=== PATIENT | male | born 1950 | race Caucasian/White ===

== ENCOUNTER 2018-04-25 11:08 | Observation (INO) | payer MEDICARE ==
[2018-04-25] MEDS ORDERED: Nitroglycerin 2% Ointment 1 INCH/1 GM Packet ONE (11:44)
[2018-04-25 11:47] LABS: #Basophils 0.1 thou/uL (0.0-0.2); #Eosinphils 0.1 thou/uL (0.0-0.7); #Lymphocytes 1.4 thou/uL (1.20-3.40); #Monocytes 0.6 thou/uL (0.11-0.59); #Neutrophils 4.1 thou/uL (1.40-6.50); %Basophils 1.5 % (0.0-1.0); %Eosinophils 2.3 % (0.0-10.0); %Lymphocytes 21.9 % (21.0-51.0); %Monocytes 9.4 % (0.0-10.0); %Neutrophils 64.9 % (42.0-75.0); Hemoglobin 15.3 g/dL (14.0-18.0); Mean Corpuscular HGB CONC 33.1 g/dL (32.0-36.0); Mean Corpuscular Hemoglobin 30.7 pg (27.0-31.0); Mean Corpuscular Volume 92.7 fL (78.0-98.0); Mean Platelet Volume 10.4 fL (7.4-10.4); Platelet Count 204 thou/uL (130-400); RBC Distribution Width 11.7 % (11.5-14.5); Red Blood Cell (RBC) Count 4.98 mill/uL (4.70-6.10); White Blood Cell (WBC) Count 6.3 thou/uL (4.8-10.8)
[2018-04-25 12:02] LABS: ALT (SGPT) 15 U/L (8-55); AST (SGOT) 17 U/L (5-34); Albumin 4.4 g/dL (3.4-4.8); Alkaline Phosphatase 71 U/L (40-150); Anion Gap 15 mmol/L (10-20); BUN (Urea Nitrogen) 20 mg/dL (8.4-25.7); Bilirubin, Total 0.7 mg/dL (0.2-1.2); CK (CPK) 78 U/L (30-200); Calc. Creatinine Clearance 0 mL/min (70-130); Calcium 9.6 mg/dL (7.8-10.44); Carbon Dioxide 25 mmol/L (23-31); Chloride 104 mmol/L (98-107); Estimated GFR-MDRD 44; Globulin 3.1 g/dL (2.4-3.5); Glucose 90 mg/dL (80-115); Lipase 12 U/L (8-78); Potassium 4.9 mmol/L (3.5-5.1); Protein, Total 7.5 g/dL (5.8-8.1); Sodium 139 mmol/L (136-145)
--- NOTE | 2018-04-25 12:57 | RAD ---
CHEST 1 VIEW: HISTORY: Chest pain. FINDINGS: No comparison. Cardiac silhouette is magnified by projection. Pulmonary vasculature unremarkable. Mediastinum midl ine. No lobar consolidation or evidence of pneumothorax. night monitor leads overlie the chest. IMPRESSION: No active cardiopulmonary abnormalities are demonstrated. POS: TINOH
[2018-04-25] MEDS ORDERED: Ondansetron ODT 4 MG TAB SL PRN (15:06)
[2018-04-25] MEDS ORDERED: Acetaminophen 325 MG TAB PO PRN ×2 (15:06→21:46)
[2018-04-25] MEDS ORDERED: Ondansetron PF 4 MG/2 ML Vial IVP PRN (15:06)
[2018-04-25] MEDS ORDERED: Aspirin 325 MG TAB PO SCH (15:15)
[2018-04-25 15:18] VITALS: BMI 28.8
[2018-04-25 16:31] LABS: Troponin I Less than 0.010 ng/mL (< 0.028)
[2018-04-25 19:11] LABS: Troponin I Less than 0.010 ng/mL (< 0.028)
[2018-04-25] MEDS ORDERED: Acetaminophen 650 MG Suppository PR PRN (19:37)
--- NOTE | 2018-04-25 20:52 | HP ---
CHIEF COMPLAINT: Increasing chest pain x1 month. HISTORY OF PRESENT ILLNESS AND REVIEW OF SYSTEMS: Mr. Mcduffie is a very pleasant 68-year-old man who presents complaining of increasing chest pain/tightness since [place]. The patient states initially it seemed to occur occasionally with exertion such as walking for a prolonged period of time while hunting. He also recalls lifting something heavy and feeling discomfort across his lower chest. The pain has been intermittent since, but increasing in frequency lately. He has also noted that the pain comes on with less exertion and 2 nights ago, experienced more severe substernal sharp chest pain which he rates a 7/10 in severity, lasting a brief moment while lying in bed. He denies any associated shortness of breath or diaphoresis. The pain was nonradiating. He states that typically, it feels like a tightness rather than a pain. It does not seem to be made better or worse by anything. Denies having any pain like this in the past. Has no history of a previous AR, but has a strong family history and reports 3 siblings who of AR in their 50s, one of which had required a CABG in the past. The patient reports undergoing a stress test several years ago with Dr. George and states he was told there was an issue with "a flap" and required treatment for a short period of time. He states once he was seen, his investigations were normal and therefore, he was taken off the medication. The patient does not recall what medications he was previously on. He has a history of hypertension and high cholesterol as well as GERD. States he is normally fit and well. Reports having a good appetite without any changes in his weight. Reports having asthma as a child, but this resolved, and he does not require any inhalers as an adult. Does not complain of any difficulty with his breathing. He reports having mild swelling in the ankles that improved once he started a low-sodium diet. He has not had any recent changes with his bowels. Denies having any abdominal pain or cramping. No urinary symptoms. Denies having any fevers. All other review of systems are negative. PAST MEDICAL HISTORY: 1. Hypertension. 2. Hyperlipidemia. 3. GERD. 4. Melanoma. PAST SURGICAL HISTORY: 1. Left thumb tendon repair. 2. Melanoma removed from right cheek. SOCIAL HISTORY: The patient is normally fit and well. He lives with his . Denies a smoking history. No heavy alcohol use. Denies any illicit drug use. ALLERGIES: NO KNOWN DRUG ALLERGIES. CURRENT MEDICATIONS: 1. Amlodipine 10 mg p.o. daily. 2. Aspirin 325 mg p.o. daily. 3. Telmisartan 40 mg p.o. daily. LABORATORY DATA: Full blood count normal. Sodium 139, potassium 4.9, BUN 20, creatinine 1.57, EGFR 44. LFTs unremarkable. Serial troponins negative x3. Lipase 12. DIAGNOSTIC DATA: Chest x-ray, 04/25/2018; no active cardiopulmonary abnormalities. IMPRESSION AND PLAN: Mr. Mcduffie was admitted to the observation unit for chest pain rule out with the following plan in place: 1. Chest pain. Asymptomatic at present. Given the increasing nature of chest pain, there is concern for unstable angina. ECG was normal, and serial troponins also normal. Given the strong family history, I have requested Cardiology consult as well as echo and stress test. BNP requested as well as a lipid panel. 2. Diet: Heart healthy diet; however, n.p.o. at midnight, pending above investigations. 3. Gastrointestinal prophylaxis. 4. Deep venous thrombosis prophylaxis. 5. Hypertension. Resume home medications and monitor BP. 6. The patient to be discussed with Dr. Vieira for further recommendations. Job ID: [id number]
[2018-04-25] MEDS: Famotidine 20 MG TAB PO SCH (20:55)
[2018-04-25] MEDS: Sodium Chloride 0.9% 1,000 ML IV SCH (21:01)
[2018-04-26] MEDS: Amlodipine 10 MG TAB PO SCH (08:11)
[2018-04-26] MEDS: Aspirin 325 MG TAB PO SCH (08:11)
[2018-04-26] MEDS: Famotidine 20 MG TAB PO SCH ×2 (08:12→20:37)
[2018-04-26 08:18] LABS: #Eosinphils 0.2 thou/uL (0.0-0.7); #Lymphocytes 1.6 thou/uL (1.20-3.40); #Monocytes 0.6 thou/uL (0.11-0.59); %Basophils 0.6 % (0.0-1.0); %Eosinophils 3.7 % (0.0-10.0); %Lymphocytes 29.4 % (21.0-51.0); %Monocytes 10.6 % (0.0-10.0); %Neutrophils 55.8 % (42.0-75.0); Hemoglobin 14.5 g/dL (14.0-18.0); Mean Corpuscular HGB CONC 31.8 g/dL (32.0-36.0); Mean Corpuscular Hemoglobin 30.4 pg (27.0-31.0); Mean Corpuscular Volume 95.5 fL (78.0-98.0); Mean Platelet Volume 8.9 fL (7.4-10.4); Platelet Count 203 thou/uL (130-400); RBC Distribution Width 11.5 % (11.5-14.5); Red Blood Cell (RBC) Count 4.78 mill/uL (4.70-6.10); White Blood Cell (WBC) Count 5.4 thou/uL (4.8-10.8)
[2018-04-26 08:26] LABS: ALT (SGPT) 13 U/L (8-55); AST (SGOT) 13 U/L (5-34); Alkaline Phosphatase 63 U/L (40-150); Anion Gap 14 mmol/L (10-20); BUN (Urea Nitrogen) 18 mg/dL (8.4-25.7); Bilirubin, Total 0.7 mg/dL (0.2-1.2); Calc. Creatinine Clearance 66 mL/min (70-130); Calcium 9.3 mg/dL (7.8-10.44); Carbon Dioxide 23 mmol/L (23-31); Cardiac Risk 6.6 (Less than 4.5); Chloride 107 mmol/L (98-107); Cholesterol 262 mg/dl (< 200 Desired); Estimated GFR-MDRD 48; Globulin 2.7 g/dL (2.4-3.5); Glucose 92 mg/dL (80-115); HDL Cholesterol 40 mg/dL (>60 Neg Risk); LDL Cholesterol, Calculated 197 mg/dL; Potassium 4.7 mmol/L (3.5-5.1); Protein, Total 6.7 g/dL (5.8-8.1); Sodium 139 mmol/L (136-145); Triglycerides 125 mg/dL (Less than 150)
[2018-04-26] MEDS: Sodium Chloride 0.9% 1,000 ML IV SCH ×2 (08:26→18:09)
[2018-04-26] MEDS ORDERED: Enoxaparin Sodium 40 MG/0.4 ML SYRINGE SC SCH (09:00)
[2018-04-26] MEDS ORDERED: ISOVUE-370 76%-LOCM 1 ML ONE (13:21)
--- NOTE | 2018-04-26 16:20 | PDOC.PN ---
- Subjective Encounter Start Date: 04/26/18 Encounter Start Time: 11:00 Pt seen for followup re: chest pain. Reports on and off chest pain. No nausea or vomiting. - Objective MAR Reviewed: Yes Vital Signs & Weight: Vital Signs (12 hours) Temp Pulse Resp BP Pulse Ox 04/26/18 15:30 97.8 F 67 20 155/88 H 95 04/26/18 11:53 97.3 F L 56 L 20 134/83 96 04/26/18 07:35 97.8 F 61 20 137/83 97 Weight Weight 212 lb 7 oz I&O: 04/25/18 04/26/18 04/27/18 06:59 06:59 06:59 Intake Total 1281 Balance 1281 Result Diagrams: 04/26/18 06:38 04/26/18 06:38 EKG Reviewed by me: Yes (Tele: NSR) Phys Exam - Physical Examination Constitutional: NAD HEENT: moist MMs Neck: supple Respiratory: clear to auscultation bilateral Cardiovascular: RRR Gastrointestinal: soft Neurological: moves all 4 limbs Psychiatric: normal affect Dx/Plan (1) Chest pain Code(s): R07.9 - CHEST PAIN, UNSPECIFIED Status: Acute Comment: pt awaiting 2D echo, cardiology input (2) HTN (hypertension) Code(s): I10 - ESSENTIAL (PRIMARY) HYPERTENSION Status: Chronic Comment: controlled (3) GERD (gastroesophageal reflux disease) Code(s): K21.9 - GASTRO-ESOPHAGEAL REFLUX DISEASE WITHOUT ESOPHAGITIS Status: Chronic Comment: stable - Plan plan discussed w/ family * . Review of Systems - Review of Systems Respiratory: negative: Cough, Shortness of Breath, SOB with Excertion, Pleuritic Pain, Wheezing Cardiovascular: negative: chest pain, palpitations, orthopnea, paroxysmal nocturnal dyspnea, edema, light headedness, other - Medications/Allergies Allergies/Adverse Reactions: Allergies Allergy/AdvReac Type Severity Reaction Status Date / Time No Known Drug Allergies Allergy Verified 04/25/18 15:04 Medications: Current Medications Acetaminophen (Tylenol) 650 mg PO Q6H PRN PRN Reason: Pain Amlodipine Besylate (Norvasc) 10 mg PO DAILY [facility] Last Admin: 04/26/18 08:11 Dose: 10 mg Aspirin (Aspirin) 325 mg PO DAILY [facility] Last Admin: 04/26/18 08:11 Dose: 325 mg Enoxaparin Sodium (Lovenox) 40 mg SC 0900 [facility] Last Admin: 04/26/18 08:12 Dose: 40 mg Famotidine (Pepcid) 20 mg PO BID [facility] Last Admin: 04/26/18 08:12 Dose: 20 mg Sodium Chloride (Normal Saline 0.9%) 1,000 mls @ 75 mls/hr IV .[id number] [facility] Last Admin: 04/26/18 08:26 Dose: Not Given Sodium Chloride (Flush - Normal Saline) 10 ml IVF PRN PRN PRN Reason: Saline Flush Last Admin: 04/25/18 20:57 Dose: 10 ml Telmisartan (Micardis) 40 mg PO DAILY [facility] Last Admin: 04/26/18 08:12 Dose: 40 mg
--- NOTE | 2018-04-26 17:32 | CON ---
DATE OF CONSULTATION: 04/26/2018 CO-SIGNING PHYSICIAN: Dr. Goetz. HISTORY OF PRESENT ILLNESS: Mr. Chávez is a 68-year-old gentleman with no prior history of an TN or CAD, who presents with exertional chest pain for 1 month. He describes this chest pain as brief lasting for few minutes, substernal tightness as well as a sharp pain that is worse with exertion while working [place] his [place]. 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 He denies any associated diaphoresis, nausea, or vomiting. He endorses some shortness of breath. He denies any radiation, and as I stated above, no prior history of TN or CAD. He, of note, has a family history of 3 of his siblings, who had MIs in their 50s. PAST MEDICAL HISTORY: 1. Gastroesophageal reflux disease. 2. Hyperlipidemia. 3. Hypertension. 4. History of melanoma, now status post resection. PAST SURGICAL HISTORY: 1. Resection of melanoma of his right cheek. 2. Left thumb tendon repair. SOCIAL HISTORY: Denies smoking, alcohol, or drug use. MEDICATIONS: 1. Amlodipine 10 mg p.o. daily. 2. Aspirin 325 mg p.o. daily. 3. Telmisartan 20 mg p.o. daily. PHYSICAL EXAMINATION: VITAL SIGNS: Afebrile. Pulse 56, respiratory rate 20, O2 saturation 96% on room air, blood pressure 134/83. GENERAL: No apparent distress. CARDIOVASCULAR: Diastolic murmur. Regular rate and rhythm. RESPIRATORY: Clear to auscultation bilaterally. ABDOMEN: Soft and nontender to palpation. No distention. Hyperactive bowel sounds. LABORATORY DATA: CBC within normal limits. D-dimer is negative at 0.37. Chemistry within normal limits, despite creatinine of 1.47. Lipid panel with cholesterol 262 and LDL cholesterol 197, triglycerides 125. BNP 224. Troponins x2 have now been less than 0.01. Creatine kinase 78. DIAGNOSTIC DATA: EKG showed normal sinus rhythm. Imaging; chest x-ray within normal limits. CTA: thoracic aneurysmal dilatation of ascending aorta, mild ASSESSMENT AND PLAN: This is a 68-year-old gentleman with exertional chest pain , that relieves with rest, admitted for typical chest pain. 1. Typical chest pain, the story is convincing for a cardiac etiology; however, troponins were negative and EKG within normal limits. CTA of the chest was positive for a mild aneurysmal dilatation of the ascending aorta. From a cardiology standpoint stress vs cardiac cath was discussed. Plan is to proceed with a cardiac cath. We also would recommend a high intensity statin due to the patient's risk factors and lipid panel. Job ID: [id number] MTDD
[2018-04-26] MEDS ORDERED: Communication Order-Pharmacy FS SCH (18:15)
--- NOTE | 2018-04-26 19:13 | CON ---
DATE OF CONSULTATION: REASON FOR CONSULTATION: Chest pain and thoracic aortic aneurysm. HISTORY OF PRESENT ILLNESS: Mr. Mcduffie is a very pleasant 68-year-old gentleman with no previous history of underlying coronary artery disease. 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 He re-presented with chest pain. This began in February. The pain has waxed and waned. It is unpredictable. He does have pain noted with lying down in addition with exertion. 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 The pain lasted for several minutes. 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 His most recent echo showed a normal LVEF. He did have a thoracic aneurysm. PAST MEDICAL HISTORY: Please see note by Dr. Maritza Wood. PHYSICAL EXAMINATION: GENERAL: Patient is a pleasant 68, who is in no acute distress. The patient appears his stated age. VITAL SIGNS: Blood pressure 155/88, pulse 86, temperature is 97.3. NEUROLOGIC: The patient is alert and oriented x3 with no focal neurologic deficits. HEENT: Sclerae without icterus. Mouth has moist mucous membranes with normal pallor. NECK: No JVD. Carotid upstroke brisk. No bruits bilaterally. LUNGS: Clear to auscultation with unlabored respirations. BACK: No scoliosis or kyphosis. CARDIAC: Regular rate and rhythm with normal S1 and S2. No S3 or S4 noted. No significant rubs, murmurs, thrills, or gallops noted throughout the precordium. PMI is not displaced. There is no parasternal heave. ABDOMEN: Soft, nontender, nondistended. No peritoneal signs present. No hepatosplenomegaly. No abnormal striae. EXTREMITIES: 2+ femoral and 2+ dorsalis pedis pulses. No cyanosis, clubbing, or edema. SKIN: No gross abnormalities. LABORATORY DATA: CK and troponin negative. Hemoglobin 14.5. Creatinine 1.45. IMPRESSION: Chest pain-etiology of chest pain is currently unknown. Some of his symptoms suggest angina and other suggest nonanginal episode. PLAN: At this point, discussed coronary angiography versus a noninvasive stress study. We will proceed with coronary angiography. Discussed the procedure in full detail with Mr. Mcduffie. Risks included, but not limited to the following: , stroke, [place], need for emergency surgery, loss of limb, bleeding, and infection, as well as a reaction to the dye causing kidney failure and needing long-term dialysis. I also discussed the risks of PCI to include all of the above including coronary dissection and perforation in addition to acute stent thrombosis and restenosis. All questions were answered. Given the above, the patient agreed to proceed with procedure. We will also recommend CT scan of the chest to assess the aneurysm. His creatinine is 1.47. We would recommend proceeding with CT prior to angiography. If his aneurysm is felt to be significant, would likely benefit from a thoracic aneurysm repair as well as bypass surgery. Further plan is pending the above. Job ID: [id number]
--- NOTE | 2018-04-26 20:26 | CT ---
CT ANGIOGRAM OF THE THORACIC AORTA: Date; 04/26/18 HISTORY: Evaluate for aneurysm. COMPARISON: None. TECHNIQUE: CT angiogram of the thoracic aorta is performed in the axial plane. Three-dimensional reformatted nereyda ges are submitted for interpretation. FINDINGS: No mediastinal mass, lymphadenopathy, or hematoma. Heart size is within normal limits. No significant pericardial fluid. Thyroid gland is unremarkable. No axillary lymphadenopathy. Trachea and central bronchi are patent. Minimal dependent atelectatic changes. No mass. No consolidat ion. No pleural effusion. No pneumothorax. Incompletely evaluated hypodensity emanating from the upper pole of the left kidney, with an attenuat ion coefficient of 8 Hounsfield units. A cyst is favored. Hypodensity in the caudate lobe of the live r is too small to characterize. There is appropriate arterial phase enhancement of the visualized nhi id organs. There are no lytic or blastic lesions in the osseous structures. The root of the aorta is unremarkable. There are some coronary calcifications. The ascending thoracic aorta is slightly prominent, measuring 4.1 x 4.5 cm. The distal ascending thoracic aorta is unremark able. The aortic arch and descending thoracic aorta have a normal caliber. Visualized upper abdominal aorta is also unremarkable. There appears to be a variant at the level of the celiac artery origin w ith two separate arteries present. Based on the reformatted images, there is no evidence of dissection. No periaortic fat stranding. Min imal atherosclerosis of the aortic knob. The origin of the carotid arteries and left subclavian arter y are unremarkable. IMPRESSION: Mild aneurysmal dilatation of the ascending thoracic aorta. POS: PPP
[2018-04-27] MEDS: Sodium Chloride 0.9% 1,000 ML IV SCH ×2 (01:50→08:32)
[2018-04-27 05:21] LABS: #Basophils 0.1 thou/uL (0.0-0.2); #Eosinphils 0.2 thou/uL (0.0-0.7); #Lymphocytes 1.5 thou/uL (1.20-3.40); #Monocytes 0.6 thou/uL (0.11-0.59); #Neutrophils 3.6 thou/uL (1.40-6.50); %Eosinophils 2.5 % (0.0-10.0); %Lymphocytes 25.6 % (21.0-51.0); %Neutrophils 60.9 % (42.0-75.0); Hemoglobin 14.1 g/dL (14.0-18.0); Mean Corpuscular HGB CONC 32.8 g/dL (32.0-36.0); Mean Corpuscular Hemoglobin 31.5 pg (27.0-31.0); Mean Corpuscular Volume 96.1 fL (78.0-98.0); Mean Platelet Volume 8.6 fL (7.4-10.4); Platelet Count 198 thou/uL (130-400); RBC Distribution Width 11.4 % (11.5-14.5); Red Blood Cell (RBC) Count 4.47 mill/uL (4.70-6.10)
[2018-04-27 05:43] LABS: Anion Gap 13 mmol/L (10-20); BUN (Urea Nitrogen) 16 mg/dL (8.4-25.7); Calc. Creatinine Clearance 74 mL/min (70-130); Calcium 8.9 mg/dL (7.8-10.44); Carbon Dioxide 23 mmol/L (23-31); Chloride 107 mmol/L (98-107); Estimated GFR-MDRD 54; Glucose 95 mg/dL (80-115); Sodium 138 mmol/L (136-145)
[2018-04-27 05:46] LABS: ALT (SGPT) 11 U/L (8-55); AST (SGOT) 11 U/L (5-34); Albumin 3.8 g/dL (3.4-4.8); Alkaline Phosphatase 63 U/L (40-150); Anion Gap 13 mmol/L (10-20); BUN (Urea Nitrogen) 19 mg/dL (8.4-25.7); Bilirubin, Total 0.6 mg/dL (0.2-1.2); Calc. Creatinine Clearance 67 mL/min (70-130); Calcium 8.9 mg/dL (7.8-10.44); Carbon Dioxide 23 mmol/L (23-31); Chloride 107 mmol/L (98-107); Estimated GFR-MDRD 48; Globulin 2.5 g/dL (2.4-3.5); Glucose 97 mg/dL (80-115); Potassium 4.9 mmol/L (3.5-5.1); Protein, Total 6.3 g/dL (5.8-8.1); Sodium 138 mmol/L (136-145)
[2018-04-27] MEDS: Amlodipine 10 MG TAB PO SCH (06:21)
[2018-04-27] MEDS: Aspirin 325 MG TAB PO SCH (06:21)
[2018-04-27] MEDS: Famotidine 20 MG TAB PO SCH (06:22)
[2018-04-27] MEDS ORDERED: Lidocaine 1% (PF) 30 ML VIAL ONE (06:49)
[2018-04-27] MEDS ORDERED: Fentanyl 100 MCG/2 ML VIAL ONE (07:20)
[2018-04-27] MEDS ORDERED: Midazolam HCl 2 mg/2 ml Vial ONE (07:20)
[2018-04-27] MEDS ORDERED: Nitroglycerin 100MG/250ML BOT 0 ML ONE (07:27)
[2018-04-27] MEDS ORDERED: Adenosine 6 MG/2 ML VIAL ONE (07:27)
[2018-04-27] MEDS ORDERED: Verapamil 5 MG/2 ML VIAL ONE (07:27)
[2018-04-27] MEDS ORDERED: Nitroglycerin 0.4 MG TAB (25 Tab Bottle) SL PRN (07:49)
[2018-04-27] MEDS ORDERED: traMADol HCl 50 MG TAB PO PRN (07:49)
[2018-04-27] MEDS ORDERED: Acetaminophen/Codeine 30-300mg Tablet PO PRN ×2 (07:49)
[2018-04-27] MEDS ORDERED: Sodium Chloride 0.9% 200 ML IV SCH (08:00)
[2018-04-27] MEDS ORDERED: Sodium Chloride 0.9% 1,000 ML IV SCH (08:00)
[2018-04-27 08:27] VITALS: TEMP 98
[2018-04-27] MEDS ORDERED: Iopamidol 370 76% 100 ML VIAL ONE (10:57)
[2018-04-27 11:35] VITALS: BP 133/82
--- NOTE | 2018-04-27 21:06 | DIS ---
DATE OF ADMISSION: 04/25/2018 DATE OF DISCHARGE: 04/27/2018 PRIMARY CARE PROVIDER: Enoc Borden MD DISCHARGE DIAGNOSES: 1. Chest pain. 2. Coronary artery disease. 3. Aortic aneurysm. CONDITION OF PATIENT ON THE DAY OF DISCHARGE: Stable. I assessed Mr. Mcduffie on the day of discharge. He denies any chest pain or shortness of breath. Vital signs are stable. S1 and S2 are heard, regular. Lungs are clear to auscultation bilaterally. DISCHARGE MEDICATIONS: 1. Aspirin 325 mg daily. 2. Telmisartan 40 mg daily. 3. Lipitor 40 mg daily. 4. Imdur 30 mg daily. 5. Metoprolol succinate 25 mg daily. CONSULTATIONS DURING THIS HOSPITALIZATION: Cardiology, Jimmie Goetz MD HOSPITAL COURSE: Mr. Mcduffie is a pleasant 68-year-old gentleman, who was admitted to [facility] on April 25, 2018 for chest pain. Please refer to Opal Shell's history and physical note dated April 25, 2018, for further details. He had 2D echocardiogram which showed left ventricular ejection fraction estimated at 50% to 55%, mildly dilated left atrium, mild mitral regurgitation, mild tricuspid regurgitation, and dilatation of the ascending aorta. He was seen by Cardiology Service. He underwent CT angiogram of the chest, which showed mild aneurysmal dilatation of the ascending thoracic aorta, measuring 4.1 x 4.5 cm. He also underwent cardiac catheterization. He was found to have single-vessel lesion and has been recommended medical therapy. At the time of this dictation, the official cath report is pending. On the day of discharge, Mr. Mcduffie has white count 6000, hemoglobin 14.1, platelet count 198,000, normal electrolytes, and creatinine of 1.33. During this hospitalization, he had triglycerides 125, cholesterol 262, LDL cholesterol 197, and HDL cholesterol 40. Many thanks for allowing me to participate in your patient's care. Please feel free to contact me with any questions or concerns. DISCHARGE DESTINATION: Home. Job ID: [id number]
== END 2018-04-27 14:07 | disposition home or self-care (01) ==
LOC: SCSER 11:08 → 2SW 14:52
PROVIDERS: ADMIT Internal Medicine; ATTEND Internal Medicine
PROC: 4A023N7 Measurement of Cardiac Sampling and Pressure, Left Heart, Percutaneous Approach (ICD-10-PCS; principal; 2018-04-25)
PROC: B2111ZZ Fluoroscopy of Multiple Coronary Arteries using Low Osmolar Contrast (ICD-10-PCS; 2018-04-25)
DX: R07.89 Other chest pain (principal); I25.10 Atherosclerotic heart disease of native coronary artery without angina pectoris; I71.2 Thoracic aortic aneurysm, without rupture; I10 Essential (primary) hypertension; E78.00 Pure hypercholesterolemia, unspecified; K21.9 Gastro-esophageal reflux disease without esophagitis; Z79.82 Long term (current) use of aspirin; Z79.899 Other long term (current) drug therapy
CPT/HCPCS: 71045; 71275; 76942; 80048; 80053 ×3; 80061; 82550; 83690; 83735; 83880; 84484 ×2; 85025 ×3; 85379; 93005; 93306; 93454; 94760; 96360; 96361 ×3; 96372; 99285; C1769; G0378; 36415; 99152; 99153; J0153; J1644; J1650; J2001; J2250; J3010; Q0162; Q9966; Q9967

== ENCOUNTER 2018-05-26 10:44 | Emergency (ER) | payer MEDICARE | END 2018-05-26 12:00 | disposition home or self-care (01) | LOC: SCSER 10:44 | DX: I10 Essential (primary) hypertension (principal) | CPT/HCPCS: 99283 ==

== ENCOUNTER 2019-03-02 08:16 | Outpatient (CLI) | payer MEDICARE ==
--- NOTE | 2019-03-02 08:56 | CT ---
CTA OF THE CHEST UTILIZING AN AORTIC ANEURYSM PROTOCOL AND 3-D REFORMATTED IMAGING INDICATION: Follow-up ascending aortic aneurysm COMPARISON: CT A of the chest dated April 26, 2018. FINDINGS: Aorta: Mild aneurysmal dilatation the ascending aorta is stable measuring approximately 4.5 cm. The a ortic arch measures 2.8 cm. The descending thoracic aorta measures 2.5 cm. Central pulmonary artery: No central pulmonary embolus demonstrated. Additional thorax findings: No focal consolidation, pleural effusion or pneumothorax is evident. Scat tered coronary artery and thoracic aortic calcifications. Additional abdominal findings: Stable partial visualization of a cystic abnormality involving the sup erior pole of the left kidney measures 5.4 cm. Small cyst within the caudate lobe is stable appearing. Osseous structures: No acute osseous abnormality. There is scattered degenerative and osteoarthritic change present. IMPRESSION: 1. Stable ascending aortic aneurysm. 2. Stable partially visualized cystic abnormalities superior pole left kidney may reflect a large cys t. This is incompletely evaluated. Renal ultrasound is recommended for additional characterization.
[2019-03-02] MEDS ORDERED: Iopamidol-370 76% 500 ML 1 ML ONE (14:49)
== END 2019-03-02 08:17 | disposition home or self-care (01) ==
LOC: BICCT 08:16
PROVIDERS: ATTEND Physician Assistant
DX: I71.2 Thoracic aortic aneurysm, without rupture (principal)
CPT/HCPCS: 71275; 82565; Q9967

== ENCOUNTER 2019-03-20 13:01 | Outpatient (CLI) | payer MEDICARE ==
--- NOTE | 2019-03-20 15:30 | ULT ---
BILATERAL RENAL ULTRASOUND: Date: 03/20/19 INDICATION: Renal cyst. Follow-up CT 03/02/19 which partially imaged a large left renal cyst. FINDINGS: Ultrasound confirms a large irregular shaped cyst involving the superior pole of the right kidney whi ch measures approximately 5.5 x 6.5 cm. There appears to be some internal loculation. It does appear cystic by ultrasound. No hydronephrosis. Left kidney is larger, measuring 13 cm in length. Right kidney measures 9.4 cm in length. Right kidney is unremarkable with no evidence of mass or cyst ic lesion. Urinary bladder is partially distended and appears unremarkable. Post-void volume was recorded at 9 m L, indicating adequate emptying. IMPRESSION: Irregularly shaped, mildly complex cyst involving the superior left kidney. Suggest follow-up renal u ltrasound in 6 months to confirm stability. POS: IVON
== END 2019-03-20 13:02 | disposition home or self-care (01) ==
LOC: SCSULT 13:01
PROVIDERS: ATTEND Physician Assistant
DX: N28.1 Cyst of kidney, acquired (principal)
CPT/HCPCS: 76770

== ENCOUNTER 2020-05-01 09:55 | Outpatient (CLI) | payer MEDICARE ==
--- NOTE | 2020-05-01 10:56 | ULT ---
Abdominal aortic sonogram HISTORY: Screening for aneurysm. FINDINGS: Good color and spectral Doppler flow within the abdominal aorta. Proximal abdominal aorta m easures up to 3.0 cm greatest AP diameter. Mid abdominal aorta 2.2 cm. Distal abdominal aorta 2.3 cm. Each common iliac artery has a normal appearance. No fluid within the retroperitoneum. IMPRESSION : Ectasia of the upper abdominal aorta, upper limits of normal in caliber 3.0 cm. No evidence of complication.
== END 2020-05-01 09:56 | disposition home or self-care (01) ==
LOC: BICULT 09:55
PROVIDERS: ATTEND Physician Assistant
DX: Z13.6 Encounter for screening for cardiovascular disorders (principal); I77.811 Abdominal aortic ectasia
CPT/HCPCS: 76775